=== PATIENT | female | born 1985 | race Caucasian/White ===

== ENCOUNTER 2016-04-10 09:21 | Emergency (ER) | payer SELFPAY ==
[2016-04-10 09:57] VITALS: BP 126/69
--- NOTE | 2016-04-10 10:34 | UC ---
FLU HPI - HPI Summary HPI Summary: pt presents with c/o "I think I have the flu". C/O nasal congestion, cough, malaise that began on 04/08/16 andhave worsened over the last two days. Reports waking this morning with a fever. - History of Current Complaint Chief Complaint: UCRespiratory Stated Complaint: FEVER COUGH SORE THROAT Time Seen by Provider: 04/10/16 10:28 Hx Obtained From: Patient Hx Last Menstrual Period: 04/09/16 ?: No Onset/Duration: Gradual Onset, Lasting Days Severity Currently: Mild Severity Initially: Mild Associated Signs & Symptoms: Positive: Fever, Myalgia, Cough, Nasal Congestion - Allergy/Home Medications Allergies/Adverse Reactions: Allergies Allergy/AdvReac Type Severity Reaction Status Date / Time Shrimp Flavor Allergy Hives Verified 04/10/16 09:57 Home Medications: Home Medications Norgestimate-Eth Estradiol(NF) [Ortho Tri-Cyclen (NF)] 1 tab PO DAILY 04/10/16 [ History Confirmed 04/10/16] PMH/Surg Hx/FS Hx/Imm Hx Previously Healthy: Yes Psychological History Of: Reports: Anxiety - Surgical History Surgical History: Yes Surgery Procedure, Year, and Place: 2012 [facility]OM[place] [facility] [place] - Family History Known Family History: Positive: Other - positive [facility] for URI - Social History Lives: With Family Alcohol Use: None Substance Use Type: None Smoking Status (MU): Never Smoked Tobacco Have You Smoked in the Last Year: No - Immunization History Most Recent Influenza Vaccination: 01/16/14 Most Recent Tetanus Shot: 05/22/13 Most Recent Pneumonia Vaccination: never Review of Systems Constitutional: Fever, Chills, Fatigue Skin: Negative Eyes: Negative ENT: Other - nasal congestion, Respiratory: Cough Cardiovascular: Negative Gastrointestinal: Negative Genitourinary: Negative Motor: Negative Neurovascular: Negative Musculoskeletal: Myalgia Neurological: Negative Psychological: Negative All Other Systems Reviewed And Are Negative: Yes Physical Exam Triage Information Reviewed: Yes Appearance: Ill-Appearing Vital Signs: Initial Vital Signs Temp 99.2 F 04/10/16 09:52 Pulse 80 04/10/16 09:52 Resp 20 04/10/16 09:52 BP 126/69 04/10/16 09:52 Pulse Ox 100 04/10/16 09:52 Vital Signs Reviewed: Yes Eye Exam: Normal ENT Exam: Other ENT: Positive: Nasal congestion, Nasal drainage Neck exam: Normal Respiratory Exam: Normal Cardiovascular Exam: Normal Musculoskeletal Exam: Normal Neurological Exam: Normal Psychological Exam: Normal Skin Exam: Normal Flu Course/Dx - Differential Dx/Diagnosis Differential Diagnosis/HQI/PQRI: Bronchitis, Influenza, Upper Respiratory Infection Provider Diagnoses: Influenza A Discharge - Discharge Plan Condition: Stable Disposition: HOME Patient Education Materials: Influenza (ED) Forms: *Work Release Referrals: Frederick Navarrete MD [Primary Care Provider] -
== END 2016-04-10 10:42 | disposition home or self-care (01) ==
LOC: UCEAST 09:21
DX: J10.1 Influenza due to other identified influenza virus with other respiratory manifestations (principal); Z90.49 Acquired absence of other specified parts of digestive tract
CPT/HCPCS: 87502; 99211; G0463